=== PATIENT | male | born 1985 | race African-American/Black ===

== ENCOUNTER 2022-02-05 23:34 | Emergency (ER) | payer OTHER ==
[~2022-02-05] VITALS: Ht 160 cm; Wt 72.6 kg
[2022-02-06 00:06] LABS: POTASSIUM 4.4 mmol/L (3.6-5.2)
[2022-02-06 00:45] LABS: PLATELET COUNT 114 K/uL (142-355)
[2022-02-06 04:55] VITALS: BP 124/71; TEMP 97.5
== END 2022-02-06 05:00 | disposition home or self-care (01) ==
LOC: ED 23:34
PROVIDERS: Hospitalist
DX: E86.0 Dehydration (principal); F20.89 Other schizophrenia
CPT/HCPCS: 36415; 80053; 80307; 80320; 81000; 82550; 85027; 93005; 96360; 99284

== ENCOUNTER 2022-04-22 19:53 | Emergency (ER) | payer OTHER ==
[~2022-04-22] VITALS: Ht 160 cm; Wt 72.6 kg
[2022-04-22 19:57] VITALS: TEMP 98.9
[2022-04-22 20:22] LABS: POTASSIUM 3.4 mmol/L (3.6-5.2)
[2022-04-22 20:25] LABS: PLATELET COUNT 108 K/uL (142-355)
[2022-04-22 20:43] LABS: PARTIAL THROMBOPLASTIN TIME 24.7 SECONDS (24.5-33.6)
[2022-04-22 22:29] VITALS: BP 117/66
== END 2022-04-22 22:33 ==
LOC: ED 19:53
PROVIDERS: Hospitalist
DX: F31.89 Other bipolar disorder (principal); R45.1 Restlessness and agitation
CPT/HCPCS: 36415; 80053; 80143; 80179; 80307; 80320; 81002; 82550; 83880; 84484; 85027; 85610; 85730; 93005; 96360; 96374; 99283; 99284